=== PATIENT | male | born 1990 | race Two or more races ===

== ENCOUNTER 2016-08-06 14:47 | Emergency (ER) | payer SELFPAY ==
[2016-08-06 14:56] VITALS: BP 150/82
--- NOTE | 2016-08-06 14:57 | ER Document Report ---
ED Medical Screen (RME) - General Stated Complaint: EYE PAIN Time seen by provider: 14:54 Mode of Arrival: Ambulatory Information source: Patient Notes: 25-year-old male presents to ED for eye pain since 4:30-5:00 this morning. He denies any injury or done anything to the eye. States that was perfectly normal when he went to bed he woke up this morning the swelling. I have greeted and performed a rapid initial assessment of this patient. A comprehensive ED assessment and evaluation of the patient, analysis of test results and completion of medical decision making process will be conducted by an additional ED providers. TRAVEL OUTSIDE OF THE [place] IN LAST 30 DAYS: No - Related Data Allergies/Adverse Reactions: No Known Allergies Allergy (Verified 04/30/16 08:05)
[2016-08-06] MEDS ORDERED: IBUPROFEN 800 MG TABLET PO ONE (14:58)
[2016-08-06] MEDS ORDERED: TETRACAINE HCL 0.5% OPH SOLN 2 ML OD ONE (15:51)
--- NOTE | 2016-08-06 15:53 | ER Document Report ---
ED Eye Complaint - General Chief Complaint: Eye Pain Stated Complaint: EYE PAIN Time seen by provider: 15:48 Mode of Arrival: Ambulatory Notes: This is a 25-year-old male that presents today with right eye pain. He states that yesterday he [place]whe[place] He did wear eye goggles, and he went to bed last night with no symptoms. He denies having any symptoms yesterday. However this morning at 0530 he woke up out of sleep with right eye pain and swelling. He states that his eye was swollen and matted. Denies nausea vomiting fever or chills. Denies history of glaucoma or any similar symptoms in the past. Denies any injury. Admits to light sensitivity and blurred vision of the right eye. He also admits to right facial pain from the right orthodoxy all the way down to the right jaw. He does not wear glasses or contacts. Denies any ill contacts or recent illnesses. TRAVEL OUTSIDE OF THE [place] IN LAST 30 DAYS: No - Related Data Allergies/Adverse Reactions: No Known Allergies Allergy (Verified 08/06/16 14:56) Home Medications: Current Home Medications No Home Medications 08/06/16 [History] Past Medical History - General Information source: Patient - Social History Smoking Status: Current Every Day Smoker Chew tobacco use (# tins/day): No Frequency of alcohol use: None Drug Abuse: None Family History: Reviewed & Not Pertinent Patient has suicidal ideation: No Patient has homicidal ideation: No Renal/ Medical History: Denies: Hx Peritoneal Dialysis Review of Systems - Review of Systems Constitutional: denies: Chills, Fever EENT: See HPI Cardiovascular: No symptoms reported Respiratory: No symptoms reported Gastrointestinal: No symptoms reported Genitourinary: No symptoms reported Musculoskeletal: No symptoms reported Skin: See HPI - Patient's right eyelid, both upper and lower, was red and swollen Hematologic/Lymphatic: No symptoms reported Neurological/Psychological: See HPI, Headaches Physical Exam - Vital signs Vitals: Temp Pulse Resp BP Pulse Ox 98.5 F 108 H 18 150/82 H 98 08/06/16 14:52 08/06/16 14:52 08/06/16 14:52 08/06/16 14:52 08/06/16 14:52 - General General appearance: Appears well, Alert In distress: None - HEENT Head: Normocephalic, Atraumatic Eyes: Normal - No corneal abrasion noted or ulcer of right eye. Right eye is diffusely red. Slight swelling noted of right eye. Right eye intraocular pressure measured by Dr. Beard was less than 20. Conjunctiva: Normal Extraocular movements intact: Yes - cranial nerves III 4 and 6 intact Pupils: PERRL - Respiratory Respiratory status: No respiratory distress Breath sounds: Normal. No: Rales, Rhonchi, Stridor, Wheezing - Cardiovascular Rhythm: Regular Heart sounds: Normal auscultation - Abdominal Bowel sounds: Normal Tenderness: Nontender - Extremities General upper extremity: Normal inspection General lower extremity: Normal inspection - Neurological Cognition: Normal. No: Confused - Psychological Associated symptoms: Normal affect, Normal mood - Skin Skin Temperature: Warm Skin Moisture: Dry Skin Color: Normal Course - Re-evaluation Re-evalutation: 08/06/16 17:24 Patient was treated here in the emergency department one drop and advised to take 1 drop every 4 hours. Patient was advised to continue eyedrops for 7 days. Patient was advised that if symptoms worsened or did not improve after 24 hours to please come back. Patient was given multiple opportunities to ask questions. Patient stated that he understood and said that he would. A bottle of besivance was given here in the emergency department for him to take home. - Vital Signs Vital signs: Temp Pulse Resp BP Pulse Ox 98.5 F 108 H 16 150/82 H 98 08/06/16 14:52 08/06/16 14:52 08/06/16 15:35 08/06/16 14:52 08/06/16 14:52 Discharge - Discharge Clinical Impression: Conjunctivitis Qualifiers: Conjunctivitis type: acute Acute conjunctivitis type: unspecified Laterality: right Qualified Code(s): H10.31 - Unspecified acute conjunctivitis, right eye Condition: Good Disposition: HOME, SELF-CARE Additional Instructions: Please return to the emergency department within 24 hours if symptoms does not improve or if symptoms worsen. Follow-up with primary care physician as soon as possible. Referrals: [facility] [Provider Group] - Follow up as needed
[2016-08-06] MEDS ORDERED: BESIFLOXACIN HCL 0.6% OPH SUSP 5 ML BOTTLE OD ONE (17:24)
== END 2016-08-06 17:54 | disposition home or self-care (01) ==
LOC: ER 14:47
DX: H10.31 Unspecified acute conjunctivitis, right eye (principal); R51 Headache; F17.200 Nicotine dependence, unspecified, uncomplicated
CPT/HCPCS: 99283

== ENCOUNTER 2016-08-08 15:34 | Emergency (ER) | payer SELFPAY ==
--- NOTE | 2016-08-08 15:48 | ER Document Report ---
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 There is now some lid swelling and discharge. He has been using Besivance one drop every 4 hours. He was seen in the emergency department on 08/06/2016. TRAVEL OUTSIDE OF THE [place] IN LAST 30 DAYS: No - Related Data Allergies/Adverse Reactions: No Known Allergies Allergy (Verified 08/06/16 14:56) Past Medical History Renal/ Medical History: Denies: Hx Peritoneal Dialysis Physical Exam - Vital signs Vitals: Temp Pulse Resp BP Pulse Ox 98.2 F 81 14 122/64 98 08/08/16 15:40 08/08/16 15:40 08/08/16 15:40 08/08/16 15:40 08/08/16 15:40 Course - Vital Signs Vital signs: Temp Pulse Resp BP Pulse Ox 98.2 F 81 14 122/64 98 08/08/16 15:40 08/08/16 15:40 08/08/16 15:40 08/08/16 15:40 08/08/16 15:40
[2016-08-08] MEDS ORDERED: TETRACAINE HCL 0.5% OPH SOLN 2 ML OD ONE (15:50)
--- NOTE | 2016-08-08 17:15 | ER Document Report ---
HPI - HPI Patient complains to provider of: pink left eye Onset: Other - 3 days Quality of pain: Other - irritating Pain Level: 2 Context: 25 yo non contact lens wearer male seen 2 days ago dx right eye conjunctivigtis. Still irrirated and red with discharge. used besinvance 3 times yesterday. Less lid swelling, now has lump in front of right ear. No fever. Associated Symptoms: None Exacerbated by: Denies Relieved by: Denies Similar symptoms previously: Yes Recently seen / treated by doctor: Yes - ROS ROS below otherwise negative: Yes Systems Reviewed and Negative: Yes All other systems reviewed and negative - DERM Skin Color: Normal Past Medical History - General Information source: Patient - Social History Smoking Status: Current Every Day Smoker Chew tobacco use (# tins/day): No Frequency of alcohol use: None Drug Abuse: None Lives with: Family Family History: Reviewed & Not Pertinent Patient has suicidal ideation: No Patient has homicidal ideation: No - Medical History Medical History: Negative Renal/ Medical History: Denies: Hx Peritoneal Dialysis Surgical Hx: Negative Vertical Provider Document - CONSTITUTIONAL Agree With Documented VS: Yes Exam Limitations: No Limitations General Appearance: No Apparent Distress - INFECTION CONTROL TRAVEL OUTSIDE OF THE [place] IN LAST 30 DAYS: No - HEENT HEENT: Conjuctival Injection - no fluorescein uptake. no fb. no ulcer. pressure 16.95 - RESPIRATORY O2 Sat by Pulse Oximetry: 98 Course - Re-evaluation Re-evalutation: 08/08/16 17:46 pt able to see my fingers, but blurry so he is able to see out of the right eye. Tonopen 16.95 pressure. He is complaining of upper lid itching since this am,, and some chemosis laterallly seen on exam. 1 preauricular lymph node on the right. bulbar and palpebral conjunctival injection, (more so palpebral), no fluorescein uptake. PERRL. telephone consult dr. cardoso to follow up in the office. Call for appt she will be happy to see him. 08/11/16 17:29 - Vital Signs Vital signs: Temp Pulse Resp BP Pulse Ox 98.2 F 81 14 122/64 98 08/08/16 15:40 08/08/16 15:40 08/08/16 15:40 08/08/16 15:40 08/08/16 15:40 Discharge - Discharge Clinical Impression: Conjunctivitis, right eye Qualifiers: Conjunctivitis type: other Qualified Code(s): H10.89 - Other conjunctivitis Condition: Good Disposition: HOME, SELF-CARE Instructions: Conjunctivitis ([facility]), Eyedrop Use ([facility]) Additional Instructions: stop the besivance start the polytrim eye drops every 4 hours up to 6 times per day call for eye doctor appt tomorrow cool compress to the eye to er if worse tonight Referrals: FELICIANO CARDOSO MD [ACTIVE STAFF] - Follow up tomorrow
[2016-08-08] MEDS ORDERED: POLYMYXIN B SULFATE/TMP OPH SOLN 10 ML OD SCH (18:00)
[2016-08-08 18:12] VITALS: BP 132/80
== END 2016-08-08 18:11 | disposition home or self-care (01) ==
LOC: ER 15:34
DX: H10.89 Other conjunctivitis (principal); F17.200 Nicotine dependence, unspecified, uncomplicated
CPT/HCPCS: 99283; J3490